=== PATIENT | female | born 1950 | race Caucasian/White ===

== ENCOUNTER → 2017-04-26 | Outpatient (CLI) | payer MEDICARE, OTHER ==
[2017-04-26 10:45] LABS: ALT 54 U/L (9-52); AST 34 U/L (14-36); Alkaline Phosphatase 64 U/L (38-126); Anion Gap 9 mmol/L; Basophils % (A) 1 %; Blood Urea Nitrogen 11 mg/dL (7-17); CH 27.8; CHCM 31.3; Calcium 9.5 mg/dL (8.4-10.2); Carbon Dioxide 24 mmol/L (22-30); Chloride 107 mmol/L (98-107); Cholesterol 191 mg/dL (<200); Eosinophils # (A) 0.1 k/uL (0-0.7); Eosinophils % (A) 2 %; Glucose 99 mg/dL (74-99); HCT 47.5 % (34.0-46.0); HDL Cholesterol 71 mg/dL (40-60); HGB 15.1 gm/dL (11.4-16.0); Hypochromasia Slight; Luc # (Auto) 0.16; Luc % (Auto) 3; Lymphocytes % (A) 29 %; MCH 28.6 pg (25.0-35.0); MCHC 31.9 g/dL (31.0-37.0); MCV 89.6 fL (80.0-100.0); Mean Platelet Volume 7.8; Monocytes # (A) 0.5 k/uL (0-1.0); Monocytes % (A) 7 %; Neutrophils # (A) 3.9 k/uL (1.3-7.7); Neutrophils % (A) 59 %; Non-African American GFR(MDRD) >60 (>60 ml/min/1.73 sqM); Potassium 4.8 mmol/L (3.5-5.1); RDW 13.5 % (11.5-15.5); Sodium 140 mmol/L (137-145); Total Bilirubin 0.6 mg/dL (0.2-1.3); Total Protein 7.4 g/dL (6.3-8.2); WBC 6.7 k/uL (3.8-10.6); WBC (Perox) 6.56
== END | disposition home or self-care (01) ==
LOC: LABWHC1 09:32
PROVIDERS: ATTEND Internal Medicine
DX: Z00.00 Encounter for general adult medical examination without abnormal findings (principal); E78.5 Hyperlipidemia, unspecified
CPT/HCPCS: 36415; 80053; 80061; 84439; 84443; 85025

== ENCOUNTER → 2018-03-22 | Outpatient (CLI) | payer MEDICARE, OTHER ==
--- NOTE | 2018-03-22 15:12 | BD ---
EXAMINATION TYPE: Axial Bone Density DATE OF EXAM: 03/22/2018 COMPARISON: 2012 CLINICAL HISTORY: osteoporosis Height: 5'6 Weight: 262 FRAX RISK QUESTIONS: Secondary Osteoporosis: RISK FACTORS HISTORY OF: Postmenopausal woman: y MEDICATIONS: Additional Medications: acid reflux Additional History: EXAM MEASUREMENTS: Bone mineral densitometry was performed using the [employer]. Bone mineral density as measured about the Lumbar spine is: ----- L1-L4(G/cm2): 1.041 T Score Values are as follows: ----- L2: -0.5 ----- L3: -1.1 ----- L4: -1.9 ----- L1-L4: -1.2 Bone mineral density has: Decreased -6.5% since study of: 07/11/2012 Bone mineral density about the R hip (g/cm2): 0.908 Bone mineral density about the L hip (g/cm2): 0.969 T Score values are as follows: -----R Neck: -0.9 -----L Neck: -0.5 -----R Total: 0.2 -----L Total: 0.6 Bone mineral density has: Decreased -6.6% since study of: 07/11/2012 IMPRESSION: Osteopenia (T Score between -2.5 and -1). There is slightly increased risk of fracture and the patient may be considered for treatment. Re-Screen 2-5 years. NOTE: T-SCORE=SD OF THE YOUNG ADULT MEAN.
--- NOTE | 2018-03-23 12:00 | MM ---
Reason for exam: screening (asymptomatic). Last mammogram was performed 2 years and 1 month ago. History: Patient is postmenopausal. Family history of breast cancer in mother at age 79 and breast cancer in maternal grandmother at age 80. Benign excisional biopsy of the left breast, April 23, 2003. Excisional biopsy of the left breast. Physical Findings: A clinical breast exam by your physician is recommended on an annual basis and results should be correlated with mammographic findings. MG 3D Screening Mammo W/Cad Bilateral CC and MLO view(s) were taken. Prior study comparison: March 02, 2016, bilateral MG diagnostic mammo w CAD ARNULFO. January 28, 2015, left breast MG diagnostic mammo LT w CAD. There are scattered fibroglandular densities. Finding: There are large typically benign dystrophic calcifications in the upper outer quadrant, anterior position of the left breast. There is a chronic nodularity in the right breast, skin lesion inferiorly. There is no new dominant lesion. Benign bilateral axillary lymph nodes redemonstrated. ASSESSMENT: Benign, BI-RAD 2 RECOMMENDATION: Routine screening mammogram of both breasts in 1 year.
== END | disposition home or self-care (01) ==
LOC: RADMAMWWP 07:27
PROVIDERS: ATTEND Obstetrics & Gynecology
DX: Z12.31 Encounter for screening mammogram for malignant neoplasm of breast (principal); Z13.820 Encounter for screening for osteoporosis; M85.80 Other specified disorders of bone density and structure, unspecified site
CPT/HCPCS: 77063; 77067; 77080

== ENCOUNTER → 2018-05-31 | Outpatient (CLI) | payer MEDICARE, OTHER ==
[2018-05-31 10:28] LABS: Basophils % (A) 1 %; Eosinophils # (A) 0.2 k/uL (0-0.7); Eosinophils % (A) 2 %; HCT 46.3 % (34.0-46.0); HGB 15.3 gm/dL (11.4-16.0); Lymphocytes # (A) 1.9 k/uL (1.0-4.8); Lymphocytes % (A) 28 %; MCH 28.3 pg (25.0-35.0); MCV 85.6 fL (80.0-100.0); Mean Platelet Volume 8.5; Monocytes # (A) 0.4 k/uL (0-1.0); Monocytes % (A) 6 %; Neutrophils # (A) 4.2 k/uL (1.3-7.7); Neutrophils % (A) 62 %; Platelet Count 216 k/uL (150-450); RBC 5.41 m/uL (3.80-5.40); RDW 14.1 % (11.5-15.5); WBC 6.9 k/uL (3.8-10.6)
[2018-05-31 17:02] LABS: Albumin 4.4 g/dL (3.80-4.90); Albumin/Globulin Ratio 2.1 (1.20-2.10); Anion Gap 6.5 mmol/L (4.00-12.00); Calcium 9.3 mg/dL (8.7-10.3); Carbon Dioxide 28.5 mmol/L (21.6-31.8); Globulin 2.1 g/dL (2.1-3.7); LDL Cholesterol,Calculated 89.8 mg/dL (0.0-131.0); Potassium 4.5 mmol/L (3.5-5.5); Total Bilirubin 0.7 mg/dL (0.2-1.2); Total Protein 6.5 g/dL (6.2-8.2); VLDL Calculation 24.2 mg/dL (5.00-40.00)
== END | disposition home or self-care (01) ==
LOC: LABWHC1 09:51
PROVIDERS: ATTEND Internal Medicine
DX: E78.5 Hyperlipidemia, unspecified (principal); I10 Essential (primary) hypertension
CPT/HCPCS: 36415; 80053; 80061; 84439; 84443; 85025

== ENCOUNTER → 2019-05-02 | Outpatient (CLI) | payer MEDICARE ==
[2019-05-02 10:24] LABS: Basophils % (A) 1 %; Eosinophils # (A) 0.1 k/uL (0-0.7); Eosinophils % (A) 2 %; HCT 47.4 % (34.0-46.0); HGB 15.4 gm/dL (11.4-16.0); Lymphocytes # (A) 1.7 k/uL (1.0-4.8); Lymphocytes % (A) 26 %; MCH 28.4 pg (25.0-35.0); MCHC 32.6 g/dL (31.0-37.0); MCV 87.2 fL (80.0-100.0); Mean Platelet Volume 7.5; Monocytes # (A) 0.4 k/uL (0-1.0); Monocytes % (A) 6 %; Neutrophils # (A) 4.1 k/uL (1.3-7.7); Neutrophils % (A) 63 %; Platelet Count 254 k/uL (150-450); RBC 5.43 m/uL (3.80-5.40); RDW 13.5 % (11.5-15.5); WBC 6.4 k/uL (3.8-10.6)
[2019-05-02 17:19] LABS: African American GFR (CKD) 88.4 (60.0-200.0); Albumin 4.3 g/dL (3.80-4.90); Albumin/Globulin Ratio 1.72 (1.60-3.17); Anion Gap 5.4 mmol/L (4.00-12.00); Calcium 9.7 mg/dL (8.7-10.3); Carbon Dioxide 27.6 mmol/L (21.6-31.8); Chol/HDL Ratio 2.84; Globulin 2.5 g/dL (1.6-3.3); LDL Cholesterol,Calculated 104.2 mg/dL (0.0-131.0); Potassium 4.6 mmol/L (3.5-5.5); Total Bilirubin 0.6 mg/dL (0.3-1.2); Total Protein 6.8 g/dL (6.2-8.2); VLDL Calculation 18.8 mg/dL (5.00-40.00)
[2019-05-02 17:43] LABS: T4, Free (Free Thyroxine) 0.9 ng/dL (0.80-1.80)
== END | disposition home or self-care (01) ==
LOC: LABWHC1 09:14
PROVIDERS: ATTEND Internal Medicine
DX: Z00.00 Encounter for general adult medical examination without abnormal findings (principal); E78.5 Hyperlipidemia, unspecified; I10 Essential (primary) hypertension
CPT/HCPCS: 36415; 80053; 80061; 84439; 84443; 85025

== ENCOUNTER → 2020-04-05 | Outpatient (CLI) | payer MEDICARE ==
--- NOTE | 2020-04-05 09:10 | CT ---
EXAMINATION TYPE: CT chest w con DATE OF EXAM: 04/05/2020 COMPARISON: Chest x-ray March 21, 2020 HISTORY: Abnormal chest x-ray CT DLP: 816.3 mGycm Automated exposure control for dose reduction was used. CONTRAST: CT scan of the chest is performed with IV Contrast, patient injected with 100 mL of Isovue 300. FINDINGS: LUNGS: Correlating with x-ray there is confirmation of 1.1 x 1.0 cm left lower lobe nodule axial imag e 48 is of fairly low density and Hounsfield units average 4. Benign etiology strongly suspected. Con teller head PET CT however to further evaluate because of size. No pleural effusion or pneumothorax seen bi laterally. MEDIASTINUM: There are no greater than 1 cm hilar or mediastinal lymph nodes. No significant peric ardial effusion is seen. Some coronary artery calcification is present which is noted marker for unde rlying coronary artery disease. Cardiomegaly is redemonstrated. OTHER: Large dystrophic calcification left breast axial image 25. Cholecystectomy clips. Moderate ex trahepatic and mild central intrahepatic biliary dilatation up to 21 mm jaime hepatis coronal image 4 7 with gradual tapering towards the ampulla out of proportion to expected after cholecystectomy. Acce ssory bilateral renal arteries incidentally noted. Few scattered hemangiomas throughout the left T10 and larger involving T7 vertebra IMPRESSION: 1. Confirmation of 1.1 x 1.0 cm left lower lobe nodule, advise PET CT to further evaluate. Low densit y noted favoring benign etiology. 2. Mild central intrahepatic and moderate extrahepatic biliary dilatation with tapering towards the a mpulla. Need to further investigate by ERCP or MRCP should be based on clinical correlation.
== END | disposition home or self-care (01) ==
LOC: RADCTMAIN 07:35
PROVIDERS: ATTEND Internal Medicine
DX: R91.1 Solitary pulmonary nodule (principal); J98.4 Other disorders of lung; Z88.6 Allergy status to analgesic agent
CPT/HCPCS: 82565; 84520; 71260; 36415; Q9967

== ENCOUNTER → 2020-04-30 | Outpatient (CLI) | payer MEDICARE ==
[2020-04-30 12:13] LABS: Basophils # (A) 0.1 k/uL (0-0.2); Basophils % (A) 1 %; Eosinophils # (A) 0.1 k/uL (0-0.7); Eosinophils % (A) 2 %; HCT 48.2 % (34.0-46.0); HGB 15.1 gm/dL (11.4-16.0); Lymphocytes # (A) 2.2 k/uL (1.0-4.8); Lymphocytes % (A) 26 %; MCH 28.1 pg (25.0-35.0); MCHC 31.3 g/dL (31.0-37.0); MCV 89.9 fL (80.0-100.0); Mean Platelet Volume 9.7; Monocytes # (A) 0.5 k/uL (0-1.0); Monocytes % (A) 6 %; Neutrophils # (A) 5.4 k/uL (1.3-7.7); Neutrophils % (A) 64 %; Platelet Count 241 k/uL (150-450); RBC 5.37 m/uL (3.80-5.40); RDW 13.7 % (11.5-15.5); WBC 8.4 k/uL (3.8-10.6)
[2020-04-30 22:57] LABS: African American GFR (CKD) 76.1 (60.0-200.0); Albumin 4.2 g/dL (3.80-4.90); Albumin/Globulin Ratio 1.56 (1.60-3.17); Anion Gap 10.3 mmol/L (4.00-12.00); BUN/Creat Ratio 17.78 Ratio (12.00-20.00); Calcium 9.5 mg/dL (8.7-10.3); Carbon Dioxide 23.7 mmol/L (21.6-31.8); Chol/HDL Ratio 3.09; Globulin 2.7 g/dL (1.6-3.3); LDL Cholesterol,Calculated 111.2 mg/dL (0.0-131.0); Non-African American GFR(CKD) 65.7 (60.0-200.0); Potassium 4.6 mmol/L (3.5-5.5); Total Bilirubin 0.4 mg/dL (0.2-1.2); Total Protein 6.9 g/dL (6.2-8.2); VLDL Calculation 24.8 mg/dL (5.00-40.00)
[2020-04-30 23:07] LABS: T4, Free (Free Thyroxine) 1.1 ng/dL (0.80-1.80)
== END | disposition home or self-care (01) ==
LOC: LABWHC1 11:07
PROVIDERS: ATTEND Internal Medicine
DX: Z00.00 Encounter for general adult medical examination without abnormal findings (principal); E78.5 Hyperlipidemia, unspecified; I10 Essential (primary) hypertension
CPT/HCPCS: 36415; 80053; 80061; 84439; 84443; 85025

== ENCOUNTER → 2020-10-31 | Outpatient (CLI) | payer MEDICARE ==
[2020-10-31 09:27] LABS: African American GFR (CKD) >90 (>60 ml/min/1.73 sqM); Blood Urea Nitrogen 17 mg/dL (7-17); Non-African American GFR(CKD) >90 (>60 ml/min/1.73 sqM)
--- NOTE | 2020-10-31 11:16 | CT ---
EXAMINATION TYPE: CT chest w con DATE OF EXAM: 10/31/2020 COMPARISON: Chest CT April 05, 2020 HISTORY: follow up lung nodule CT DLP: 853 mGycm. Automated Exposure Control for Dose Reduction was Utilized. TECHNIQUE: CT scan of the thorax is performed following with IV Contrast, patient injected with 100 mL of Isovue 300. FINDINGS: LUNGS: Correlating with x-ray there is redemonstration of left lower lobe nodule axial image 43 is sl ightly larger versus prior study as it measures 1.3 x 1.2 cm versus 1.1 x 1.0 prior. Sagittal images also slight interval growth. No new nodules or masses. No pleural effusion or pneumothorax seen bilat erally. MEDIASTINUM: There are no greater than 1 cm hilar or mediastinal lymph nodes. No significant peric ardial effusion is seen. Moderate coronary artery calcification is redemonstrated which is noted oksana er for underlying coronary artery disease. Heart size within normal limits. OTHER: Dystrophic calcification left breast axial image 21 redemonstrated. Cholecystectomy clips red emonstrated. Stable Moderate extrahepatic and mild central intrahepatic biliary dilatation up to 20 m m jaime hepatis coronal image 49 with tapering towards the ampulla out of proportion to expected afte r cholecystectomy redemonstrated. Mild to moderate generalized fat replaced atrophy in the inferior h ead and uncinate process redemonstrated. Accessory bilateral renal arteries redemonstrated. Few scatt ered hemangiomas throughout the thoracic spine again seen. Liver remains diffusely low dense suggesti ng fatty infiltration. IMPRESSION: 1. Slow growing left lower lobe nodule 1.3 cm current study. Neoplasm needs to be considered. Conside r PET/CT to further evaluate. Consider cardiothoracic surgical consultation or follow-up.
== END | disposition home or self-care (01) ==
LOC: RADCTMAIN 08:45
PROVIDERS: ATTEND Internal Medicine
DX: R91.1 Solitary pulmonary nodule (principal)
CPT/HCPCS: 82565; 84520; 71260; 36415; Q9967

== ENCOUNTER → 2020-11-15 | Outpatient (CLI) | payer MEDICARE ==
--- NOTE | 2020-11-18 16:34 | PE ---
Nuclear medicine PET/CT HISTORY: Solitary pulmonary nodule, initial Patient received 9.6 mCi F-18 FDG intravenously delayed scanning was performed from the skull base to the mid thighs. An attenuation correction, localization CT was obtained. Correlation CT chest 10/31/2020 Chest and neck: Patient's left lower lobe lung nodule does not show associated hypermetabolic uptake. There is no pleural pericardial effusion. No supraclavicular or cervical adenopathy. Thyroid gland s hows some increased uptake. There is no mediastinal, axillar, or hilar adenopathy. Coronary artery ca lcifications are present. ABDOMEN: No suspicious uptake. No evident liver mass. Patient is post cholecystectomy. No retroperito ubaldo adenopathy. No evident adrenal mass. No ascites. No pelvic adenopathy or free fluid. Uterus and adnexal structures are absent. Osseous structures show no suspicious uptake. Facet arthropathy and degenerative disc changes are not ed in the lumbar spine. IMPRESSION: No suspicious uptake IMPRESSION: No suspicious uptake.
== END | disposition home or self-care (01) ==
LOC: RADPETMAIN 07:15
PROVIDERS: ATTEND Internal Medicine
DX: R91.1 Solitary pulmonary nodule (principal)
CPT/HCPCS: 78815; A9552

== ENCOUNTER → 2021-03-03 | Outpatient (CLI) | payer MEDICARE ==
--- NOTE | 2021-03-03 14:43 | CT ---
EXAMINATION TYPE: CT chest w con DATE OF EXAM: 03/03/2021 COMPARISON: PET/CT dated 11/15/[address] chest 10/31/2020 HISTORY: follow up lung nodule CT DLP: 660.1 mGycm Automated exposure control for dose reduction was used. CONTRAST: CT scan of the chest is performed with IV Contrast, patient injected with 100 mL of Isovue 300. FINDINGS: LUNGS: Again noted is a 1.3 cm enhancing nodule left lower lobe versus 1.3 cm previously. No addition al nodules are seen. The lungs are otherwise clear. No infiltrate or volume loss. No pleural effusion . There is no pleural effusion or pneumothorax seen. The tracheobronchial tree is patent. MEDIASTINUM: There are no greater than 1 cm hilar or mediastinal lymph nodes. No pericardial effusi on is seen. Thoracic aorta is of normal caliber. The heart is not enlarged. UPPER ABDOMEN: No significant abnormality appreciated. OTHER: No additional significant abnormality is seen. IMPRESSION: Again noted is a 1.3 cm enhancing nodule left lower lobe versus 1.3 cm previously. No additional nodu les are seen. Stability over a two-year timeframe should be documented radiographically.
== END | disposition home or self-care (01) ==
LOC: RADCTMAIN 12:58
PROVIDERS: ATTEND Internal Medicine
DX: R91.1 Solitary pulmonary nodule (principal)
CPT/HCPCS: 82565; 84520; 71260; Q9967

== ENCOUNTER → 2021-09-29 | Outpatient (CLI) | payer MEDICARE ==
[2021-09-29 08:52] LABS: African American GFR (CKD) >90 (>60 ml/min/1.73 sqM); Blood Urea Nitrogen 16 mg/dL (7-17); Non-African American GFR(CKD) 86 (>60 ml/min/1.73 sqM)
--- NOTE | 2021-09-29 11:21 | CT ---
EXAMINATION TYPE: CT chest w con DATE OF EXAM: 09/29/2021 COMPARISON: CT dated 03/03/2021 HISTORY: Lung nodule CT DLP: 841 mGycm Automated exposure control for dose reduction was used. TECHNIQUE: CT scan of the chest is performed with IV Contrast, patient injected with 100 mL of Isovue 300. FINDINGS: LUNGS: Redemonstration of the previously seen left lung base nodule measuring 14 mm compared to 13 mm in February 2021 CT scan and 10 mm in April 2020 CT scan. No uptake was seen on November 2020 PET scan prater ggestive of a slowly growing benign lesion. Unremarkable lungs otherwise. Patent central airways. No pleural effusion. MEDIASTINUM: No gross cardiomegaly. Coronary and arterial atherosclerotic calcifications. Minimal per icardial fluid, stable. No pathologically enlarged lymph nodes in the chest. OTHER: Previous cholecystectomy with persistent dilatation of the CBD. Small sliding hiatal hernia. Stable scattered vertebral body hemangiomas. Osteopenia. IMPRESSION: Findings are suggestive of a slowly growing benign left lung base nodule since April 2020 CT scan a s described above. Recommend another follow-up in 6-12 months. Incidental findings as described above .
== END | disposition home or self-care (01) ==
LOC: RADCTMAIN 07:55
PROVIDERS: ATTEND Internal Medicine
DX: R91.1 Solitary pulmonary nodule (principal)
CPT/HCPCS: 82565; 84520; 71260; 36415; Q9967

== ENCOUNTER → 2022-04-01 | Outpatient (CLI) | payer MEDICARE ==
[2022-04-01 09:20] LABS: African American GFR (CKD) >90 (>60 ml/min/1.73 sqM); Blood Urea Nitrogen 16 mg/dL (7-17); Non-African American GFR(CKD) 80 (>60 ml/min/1.73 sqM)
--- NOTE | 2022-04-01 10:14 | CT ---
EXAMINATION TYPE: CT chest w con DATE OF EXAM: 04/01/2022 COMPARISON: 09/29/2021, 03/03/2021, 10/31/2020, 04/05/2020 HISTORY: Lung Nodule CT DLP: 769.30 mGycm, Automated exposure control for dose reduction was used. CONTRAST: Performed injected with 100 mL of Isovue 300. TECHNIQUE: Axial images were obtained at 5 mm thick sections. Reconstructed images are reviewed on [employer] computer in the coronal plane. FINDINGS: Portion of the thyroid visualized is normal. There is a stable 1.3 cm nodule in the left lower lung field. Series 4 image 43. No new nodules are e vident. No enlarged mediastinal or hilar adenopathy is evident. The ascending aorta diameter at the level o f the main pulmonary artery is 3.7 cm. The main pulmonary artery diameter at the bifurcation is 2.8 cm. Mild coronary artery calcification is present. Small hiatal hernia is present. Limited CT sections are obtained through the upper abdomen. There is some stable prominence of the bi liary system within the extrahepatic biliary ducts. IMPRESSIONS: 1. Stable left lower lobe lung nodule. This should be confirmed as stable over the course of 2 years. Follow-up exam in 6 months is recommended.
== END | disposition home or self-care (01) ==
LOC: RADCTMAIN 08:36
PROVIDERS: ATTEND Internal Medicine
DX: R91.1 Solitary pulmonary nodule (principal)
CPT/HCPCS: 82565; 84520; 71260; 36415; Q9967

== ENCOUNTER → 2022-06-23 | Outpatient (CLI) | payer MEDICARE ==
[2022-06-23 14:31] LABS: Basophils # (A) 0.04 X 10*3/uL (0.00-0.10); Basophils % (A) 0.6 %; Eosinophils # (A) 0.13 X 10*3/uL (0.04-0.35); Eosinophils % (A) 2.1 %; HGB 15.1 g/dL (12.0-15.0); Immature Grans, Automated 0.3 %; Lymphocytes # (A) 2.08 X 10*3/uL (0.90-5.00); Lymphocytes % (A) 33.4 %; MCH 27.9 pg (27.0-32.0); MCHC 31.5 g/dL (32.0-37.0); MCV 88.7 fL (80.0-97.0); Monocytes # (A) 0.53 X 10*3/uL (0.20-1.00); Monocytes % (A) 8.5 %; NRBC Per 100 WBC 0 /100 WBCS (0.0-0.0); Neutrophils # (A) 3.42 X 10*3/uL (1.80-7.70); Neutrophils % (A) 55.1 %; Platelet Count 218 X 10*3/uL (140-440); RBC 5.41 X 10*6/uL (4.10-5.20); RDW 14.2 % (11.5-14.5); WBC 6.22 X 10*3/uL (4.50-10.00)
[2022-06-23 15:11] LABS: ALT 26 U/L (8-44); AST 18 U/L (13-35); African American GFR (CKD) 86.6 (60.0-200.0); Albumin 4.3 g/dL (3.8-4.9); Albumin/Globulin Ratio 1.59 (1.60-3.17); Alkaline Phosphatase 62 U/L (41-126); BUN/Creat Ratio 26.13 Ratio (12.00-20.00); Blood Urea Nitrogen 20.9 mg/dL (9.0-27.0); Calcium 9.5 mg/dL (8.7-10.3); Carbon Dioxide 22.7 mmol/L (20.0-27.5); Chloride 106 mmol/L (96-109); Chol/HDL Ratio 3.32 Ratio; Globulin 2.7 g/dL (1.6-3.3); Glucose 101 mg/dL (70-110); LDL Cholesterol,Calculated 106.1 mg/dL (0.0-131.0); Non-African American GFR(CKD) 74.7 (60.0-200.0); Potassium 4.2 mmol/L (3.5-5.5); Sodium 140 mmol/L (135-145); VLDL Calculation 19.66 mg/dL (5.00-40.00)
== END | disposition home or self-care (01) ==
LOC: LABWHC1 08:33
PROVIDERS: ATTEND Internal Medicine
DX: Z00.00 Encounter for general adult medical examination without abnormal findings (principal); I10 Essential (primary) hypertension; E55.9 Vitamin D deficiency, unspecified; E78.5 Hyperlipidemia, unspecified
CPT/HCPCS: 36415; 80053; 80061; 82306; 84439; 84443; 85025

== ENCOUNTER → 2022-06-23 | Outpatient (CLI) | payer MEDICARE ==
--- NOTE | 2022-06-23 11:04 | MM ---
Reason for Exam: Screening (asymptomatic). Last mammogram was performed 4 year(s) and 3 month(s) ago. Patient History: Menarche at age 14. First Full-Term at age 19. Left ovary removed at age 52. Right ovary removed at age 52. Hysterectomy at age 52. Postmenopausal. 04/23/2003, Benign Excisional Biopsy on the left side. Excisional Biopsy on the Left side. Maternal grandmother had breast cancer, age 80. Mother had breast cancer, age 79. Risk Values: Dede 5 year model risk: 4.8%. NCI Lifetime model risk: 13.5%. Prior Study Comparison: 01/28/2015 Left Diagnostic Mammogram, [facility]. 03/02/2016 Bilateral Diagnostic Mammogram, [facility]. 03/22/2018 Bilateral Screening Mammogram, [facility]. Tissue Density: There are scattered fibroglandular densities. Findings: Analyzed By CAD. There is no suspicious group of microcalcifications or new suspicious mass in either breast. Benign calcifications within both breasts. No significant change from prior exams. Overall Assessment: Benign, BI-RAD 2 Management: Screening Mammogram of both breasts in 1 year. A clinical breast exam by your physician is recommended on an annual basis and results should be correlated with mammographic findings. Electronically signed and approved by: Ahmet Orta D.O.
== END | disposition home or self-care (01) ==
LOC: RADMAMWWP 08:12
PROVIDERS: ATTEND Obstetrics & Gynecology
DX: Z12.31 Encounter for screening mammogram for malignant neoplasm of breast (principal); Z78.0 Asymptomatic menopausal state; Z80.3 Family history of malignant neoplasm of breast; Z90.721 Acquired absence of ovaries, unilateral
CPT/HCPCS: 77063; 77067

== ENCOUNTER → 2023-02-09 | Outpatient (CLI) | payer MEDICARE ==
[2023-02-09 08:45] LABS: African American GFR (CKD) 80 (>60 ml/min/1.73 sqM); Blood Urea Nitrogen 15 mg/dL (7-17); Non-African American GFR(CKD) 69 (>60 ml/min/1.73 sqM)
--- NOTE | 2023-02-09 09:58 | CT ---
EXAMINATION TYPE: CT chest w con CT DLP: 669.3 mGycm, Automated exposure control for dose reduction was used. DATE OF EXAM: 02/09/2023 9:06 AM COMPARISON: CT 03/24/2022. PET/CT 11/15/2020 an more distant studies. CLINICAL INDICATION:Female, 72 years old with history of R91.1 lung nodule; , Lung nodule TECHNIQUE: Multiple axial images were obtained through the chest. Sagittal and coronal reformats were created for review. Contrast used:100 mL of Isovue 300 with IV Contrast (None if empty) Oral contrast used: (None if empty) FINDINGS: LUNGS/ PLEURA: The left lower lobe pulmonary nodule is stable in size measuring 15 x 12 mm. Receptor 10 mm in 2020. AIRWAY: Patent and unremarkable. HEART: Hours mildly enlarged for size. MEDIASTINUM: No gross evidence of adenopathy. Small hiatal hernia. VASCULATURE: No aortic aneurysm. MUSCULOSKELETAL: No acute osseous abnormalities SOFT TISSUES/LYMPH NODES: Unremarkable. LOWER NECK: No significant findings. UPPER ABDOMEN: The gallbladder surgically absent. biliary dilation which can be seen in the setting o f postcholecystectomy physiology. IMPRESSION: Similar left lower lobe 15 x 12 mm pulmonary nodule. Finding is slowly growing when comparing back to 2020 where it measured up to 10 mm. No new suspicious pulmonary nodules identified.
== END | disposition home or self-care (01) ==
LOC: RADCTMAIN 08:08
PROVIDERS: ATTEND Internal Medicine
DX: R91.1 Solitary pulmonary nodule (principal)
CPT/HCPCS: 82565; 84520; 71260; 36415; Q9967

== ENCOUNTER → 2023-06-25 | Outpatient (CLI) | payer MEDICARE ==
--- NOTE | 2023-06-25 19:30 | BD ---
EXAMINATION TYPE: Axial Bone Density DATE OF EXAM: 06/25/2023 CLINICAL HISTORY: 72 years old Female. ICD-10 CODE: Z12.31 screening, M81.0 AGE-RELATED OSTEOPOROSIS Height: 65.5 Weight: 229.6 FRAX RISK QUESTIONS: Alcohol (3 or more units per day): no Family History (Parent hip fracture): no Glucocorticoids (More than 3mos): no History of Fracture in Adulthood: no Secondary Osteoporosis: 1. Type 1 Diabetes: no 2. Hyperthyroidism: no 3. Menopause before 45: no 4. Malnutrition: no 5. Chronic liver disease: no Rheumatoid Arthritis: no Current Tobacco Use: no RISK FACTORS HISTORY OF: Hip Fracture (Right/Left): no Spine Fracture: no History of Wrist Fracture: no Surgery to Spine/Hip(right/left)/Wrist (right/left): no Family History of Osteoporosis: no Active: yes Diet low in dairy products/other sources of calcium: no Postmenopausal woman: yes Take estrogen and/or progesterone medications: no Lost more than 2 inches in height since high school: no Frequent falls: no Poor Health: no Hyperparathyroidism: no Adrenal Insufficiency: no MEDICATIONS: Prednisone or other steroids: no Thyroid Medications: no Osteoporosis Medications: no Additional Medications: BP Med, Reflux Meds, Vit D, Multi Vit., Additional History: EXAM MEASUREMENTS: Bone mineral densitometry was performed using the [employer] System. Bone mineral density as measured about the Lumbar spine is: ----- L1-L4(G/cm2): 1.064 T Score Values are as follows: ----- L1: -1.6 ----- L2: -0.5 ----- L3: -0.9 ----- L4: -1.1 ----- L1-L4: -1.0 Z Score Values are as follows: ----- L1: -1.0 ----- L2: 0.0 ----- L3: -0.3 ----- L4: -0.6 ----- L1-L4: -0.4 Bone mineral density has: increased 2.2 % since study of: 03/22/2018 Bone mineral density about the R hip (g/cm2): 0.960 Bone mineral density about the L hip (g/cm2): 0.997 T Score values are as follows: -----R Neck: -1.0 -----L Neck: -0.9 -----R Total: -0.4 -----L Total: -0.1 Z Score values are as follows: -----R Neck: 0.0 -----L Neck: 0.1 -----R Total: 0.3 -----L Total: 0.6 Bone mineral density has: decreased -7.2 % since study of: 03/22/2018 FRAX%s: The graph provided illustrates a 8.3% chance for a major osteoporotic fx and a 0.9% chance fo r the hips probability for fx in 10 years time. IMPRESSION: Normal (Values between +1 and -1 indicate normal bone mass). Note that measurements border on osteop enia within the lumbar spine and right hip. Consider repeating this study in 5 years or sooner if the re is some new clinical indication. NOTE: T-SCORE=SD OF THE YOUNG ADULT MEAN.
--- NOTE | 2023-06-30 12:32 | MM ---
Reason for Exam: Screening (asymptomatic). Last screening mammogram was performed 12 month(s) ago. Patient History: Menarche at age 14. First Full-Term at age 19. Left ovary removed at age 52. Right ovary removed at age 52. Hysterectomy at age 52. Postmenopausal. 04/23/2003, Benign Excisional Biopsy on the left side. Excisional Biopsy on the Left side. Maternal grandmother had breast cancer, age 80. Mother had breast cancer, age 79. Risk Values: Dede 5 year model risk: 4.8%. NCI Lifetime model risk: 12.9%. Prior Study Comparison: 03/02/2016 Bilateral Diagnostic Mammogram, [facility]. 03/22/2018 Bilateral Screening Mammogram, [facility]. 06/23/2022 Bilateral MG 3D screening mammo w/cad, [facility]. Tissue Density: The breast tissue is almost entirely fat. Findings: Analyzed By CAD. There is no suspicious group of microcalcifications or new suspicious mass. Benign-appearing calcifications left breast. Overall Assessment: Benign, BI-RAD 2 Management: Screening Mammogram of both breasts in [address] [facility] will attempt to contact patient to return for supplemental views and ultrasound if indicated. Patient should continue monthly self-breast exams. A clinical breast exam by your physician is recommended on an annual basis. This exam should not preclude additional follow-up of suspicious palpable abnormalities. Note on Dede scores and lifetime risk: 1. A Dede score greater than 3% is considered moderate risk. If this is the case, consider specialist referral to assess eligibility for a risk reducing agent. 2. If overall lifetime risk for the development of breast cancer is 20% or higher, the patient may qualify for future screening with alternating mammogram and breast MRI. Electronically signed and approved by: Lakhwinder Hodges DO
== END | disposition home or self-care (01) ==
LOC: RADMAMWWP 09:29
PROVIDERS: ATTEND Obstetrics & Gynecology
DX: Z12.31 Encounter for screening mammogram for malignant neoplasm of breast (principal); M81.0 Age-related osteoporosis without current pathological fracture; M85.88 Other specified disorders of bone density and structure, other site; Z78.0 Asymptomatic menopausal state; Z80.3 Family history of malignant neoplasm of breast
CPT/HCPCS: 77063; 77067; 77080

== ENCOUNTER → 2023-11-03 | Outpatient (CLI) | payer MEDICARE ==
[2023-11-03 20:21] LABS: Rheumatoid Factor, Qnt <15 IU/mL (0-15); T4, Free (Free Thyroxine) 1.23 ng/dL (0.80-1.80)
[2023-11-03 20:30] LABS: Gliadin AB IgA, Deaminated Negative (Negative); Gliadin AB IgA, Unit 0.6 U/mL; Gliadin AB IgG, Deaminated Negative (Negative); Gliadin AB IgG, Unit <0.4 U/mL
== END | disposition home or self-care (01) ==
LOC: LABWHC1 14:29
PROVIDERS: ATTEND Internal Medicine
DX: M35.3 Polymyalgia rheumatica (principal); G62.9 Polyneuropathy, unspecified; K90.0 Celiac disease
CPT/HCPCS: 36415; 82607; 83516; 84439; 84443; 85652; 86038; 86141; 86431

== ENCOUNTER → 2024-03-09 | Outpatient (CLI) | payer MEDICARE ==
[2024-03-09 18:37] LABS: Protein, Total 7.5 g/dL (6.2-8.2)
[2024-03-09 19:00] LABS: Appearance,Urine Cloudy (Clear); Bilirubin,Urine Negative (Negative); Blood,Urine Small (Negative); Color,Urine Yellow (Yellow); Ketones,Urine 15 (Negative); Nitrite,Urine Positive (Negative); PH, Urine 5.5; Specific Gravity,Urine 1.021 (1.001-1.030); Urobilinogen,Urine 0.2 E.U./DL
[2024-03-09 19:06] LABS: Bacteria,Urine 3+ (None Seen)
[2024-03-12 16:48] LABS: Albumin 4.17 g/dL (3.80-4.90); Gamma Globulin 1.28 g/dL (0.70-1.50)
== END | disposition home or self-care (01) ==
LOC: LABWHC1 15:09
PROVIDERS: ATTEND Internal Medicine
DX: M35.00 Sjogren syndrome, unspecified (principal); N39.0 Urinary tract infection, site not specified; E55.9 Vitamin D deficiency, unspecified; R63.4 Abnormal weight loss
CPT/HCPCS: 36415; 81001; 82306; 84165; 86235; 87077; 87086; 87186

== ENCOUNTER → 2024-03-14 | Outpatient (CLI) | payer MEDICARE ==
[2024-03-14 10:47] LABS: African American GFR (CKD) 74 (>60 ml/min/1.73 sqM); Blood Urea Nitrogen 16 mg/dL (7-17); Non-African American GFR(CKD) 64 (>60 ml/min/1.73 sqM)
--- NOTE | 2024-03-14 11:46 | CT ---
EXAMINATION TYPE: CT chest w con CT DLP: 537.90 mGycm, Automated exposure control for dose reduction was used. DATE OF EXAM: 03/14/2024 11:23 AM COMPARISON: CT chest 02/09/2023, 04/01/2022, 09/29/2021, 03/03/2021. CLINICAL INDICATION:Female, 73 years old with history of R91.1 SOLITARY NODULE; PHH, Solitary pulmona ry nodule TECHNIQUE: Multiple axial images were obtained through the chest following the administration of 100 cc of Isovue 300. . Coronal and sagittal reformats reviewed. FINDINGS: LUNGS/ PLEURA: No pleural effusion or pneumothorax. Linear scarring within the left lower lobe. Incre ased size of left lower lobe pulmonary nodule measuring 14 x 12 mm, previously 15 x 12 mm (series 3, image 41). AIRWAY: Patent and unremarkable. HEART: Mildly enlarged for size. No pericardial effusion. Moderate coronary arterial calcifications. MEDIASTINUM: No gross evidence of adenopathy. Small hiatal hernia. VASCULATURE: No aortic aneurysm. MUSCULOSKELETAL: No acute osseous abnormalities. A few scattered vertebral hemangiomas identified. Mu ltilevel anterior osteophytosis. SOFT TISSUES/LYMPH NODES: Unremarkable. LOWER NECK: Redemonstration of left thyroid lobe posterior 1 cm hypodense nodule. UPPER ABDOMEN: The gallbladder is surgically absent. Intra and extrahepatic biliary duct dilatation w hich can be seen in the setting of postcholecystectomy physiology. IMPRESSION: Stable left lower lobe 14 x 12 mm pulmonary nodule. However this nodule is slowly growing when compar ing back to 2020 where it measured up to 10 mm. Cannot exclude slow-growing pulmonary adenocarcinoma. No new suspicious pulmonary nodules identified.
== END | disposition home or self-care (01) ==
LOC: RADCTMAIN 09:56
PROVIDERS: ATTEND Internal Medicine
DX: R91.1 Solitary pulmonary nodule
CPT/HCPCS: 36415; 71260; 82565; 84520